=== PATIENT | female | born 1955 | race Caucasian/White ===

== ENCOUNTER 2018-11-15 18:30 | Emergency (ER) | payer SELFPAY ==
[~2018-11-15] VITALS: Ht 144.8 cm; Wt 82.0 kg
[2018-11-15 18:52] VITALS: BP 157/68; PULSE 102; RESP 22; Ht 144.8 cm; Wt 82.0 kg
== END 2018-11-15 22:55 | disposition left against medical advice (07) ==
LOC: E/R 18:30
DX: Z53.21 Procedure and treatment not carried out due to patient leaving prior to being seen by health care provider (principal)

== ENCOUNTER 2018-11-24 13:46 | Emergency (ER) | payer MEDICARE ==
[~2018-11-24] VITALS: Ht 157.5 cm; Wt 86.3 kg
[2018-11-24 13:52] VITALS: Ht 157.5 cm; Wt 86.3 kg
[2018-11-24] MEDS ORDERED: ALBUTEROL 0.083% (NEB) 2.5 MG/3 ML AMP INH STA (16:28)
[2018-11-24] MEDS ORDERED: IPRATROPIUM (NEB) 0.5 MG/2.5 ML AMP INH STA (16:28)
[2018-11-24] MEDS ORDERED: morphine 2 MG INJ IV STA (16:36)
[2018-11-24] MEDS ORDERED: ONDANSETRON 4 MG INJ IV STA (16:36)
--- NOTE | 2018-11-24 17:48 | ERD ---
ER Documentation Chief Complaint Chief Complaint Abdominal swelling since paracentesis 5 days ago, AP, Hx cirrhosis HPI This is a 63-year-old female with a past medical history of diabetes and hypertension however she states she has never been on medications and this is diet controlled. The patient does not have a primary care physician. The patient indicates for the past 5 days she has been experiencing abdominal swelling. She does complain of mild abdominal pain which she states is most prominent in the right flank region and right upper quadrant. There is no alleviating or exacerbating factors to the pain. She states the pain is 4 out of 10 in intensity. She is been having shortness of breath. She is been having swelling of her lower extremities. She indicates that she is experience any paroxysmal nocturnal dyspnea. She has to sleep with 4 pillows at night to improve her shortness of breath. The patient can only walk half a block before she becomes short of breath and tired. The patient was seen at [facility] at the onset of her symptoms 5 days prior to arrival. She was told that she has cirrhosis of the liver and indicated that they removed fluid from her belly. She indicates her symptoms have worsened which prompted her to come to the emergency department today. She denies any history of alcoholism and no illicit drug use. She has no headache. She has no changes in vision. She de nies any chest pain or pressure. She denies any recent travel or prolonged immobilization. She denies any fever shaking or chills. ROS All systems reviewed and are negative except as per history of present illness. Medications Home Meds No Active Prescriptions or Reported Meds Allergies Allergies: Coded Allergies: No Known Allergy (Unverified , 11/24/18) PMhx/Soc Medical and Surgical Hx: pt denies Surgical Hx Anesthesia Reaction: No Hx Neurological Disorder: No Hx Respiratory Disorders: No Hx Cardiac Disorders: Yes (hyperlipidemia, HTN all "diet controlled" not taking meds. ) Hx Psychiatric Problems: No Hx Miscellaneous Medical Probl: Yes (DM all "diet controlled" not taking meds.) Hx Alcohol Use: No Hx Substance Use: No Hx Tobacco Use: No Smoking Status: Never smoker Physical Exam Vitals Vital Signs Date Temp Pulse Resp B/P (MAP) Pulse Ox O2 O2 Flow FiO2 Time Delivery Rate 11/24/18 97.7 85 18 116/70 97 Room Air 20:42 (85) 11/24/18 97.7 92 18 110/64 97 Room Air 19:46 (79) 11/24/18 97.7 96 18 107/54 97 Room Air 19:05 (71) 11/24/18 80 19 97 21 17:09 11/24/18 97.7 95 18 121/57 98 13:52 (78) Physical Exam Constitutional:Well-developed. Well-nourished. Patient appeared in mild respiratory distress HEENT:Normocephalic. Atraumatic.Pupils were equal round reactive to light. Moist mucous membranes.No tonsillar exudates. Neck: No nuchal rigidity. No lymphadenopathy. No posterior cervical spine tenderness or step-offs. Respiratory: Tachypneic. Not using accessory muscles of respiration.Lungs were clear to auscultation bilaterally. No rhonchi. No rales. No wheezing. Cardiovascular: Regular rate regular rhythm.No murmurs. No rubs were appreciated.S1, S2 normal. Distal pulses are palpable 2+ bilaterally. GI: Abdomen was soft with distention and positive fluid thrill. Tenderness in the right flank region and mild tenderness the right upper quadrant with negative review sign. No pulsatile abdominal masses or bruits. No rebound. No guarding. Bowel sounds were present and normal. Muscle skeletal: Full range of motion of both the upper and lower extremities bilaterally.Normal muscle tone. Asymmetrical calf swelling however bilateral calf tenderness Skin: No petechia, no purpura. No lesions on the palms or the soles of the feet. No maculopapular rash. NEURO: Patient was alert, awake, orientated x3.No facial droop. Gait observed and normal with no ataxia.Speech had regular rate and rhythm. No focal neurological deficits. Result Diagram: 11/24/183 11/24/18 1653 Results 24 hrs Laboratory Tests Test 11/24/18 16:28 11/24/18 16:53 Blood Gas Specimen Source Blood arterial Arterial Blood Date Drawn 11/24/2018 7:30:03 PM Arterial Blood pH (Temp corrected) 7.403 Arterial Blood pCO2 (Temp correct) 31.9 mmhg Arterial Blood pO2 (Temp corrected) 72.7 mmHG Arterial Blood HCO3 19.5 mmol/L Arterial Blood Base Excess -4.5 mmol/L Arterial Blood Oxygen Saturation 92.9 mmHG [place] Test ACCEPTAB Arterial Blood Gas Puncture Site Right Radial Arterial Blood Carboxyhemoglobin 0.3 % Arterial Blood Methemoglobin 0.2 % Blood Gas A-a O2 Differential 38.8 mmHg Oxyhemoglobin Percent 92.4 % Blood Gas Temperature 37.0 C Blood Gas Actual Respiration Rate 18 Blood Gas Modality ROOM AIR FiO2 21.0 % Blood Gas Notified Whom Blood Gas Notified Time 11/24/2018 7:35:46 PM White Blood Count 5.6 10^3/ul Red Blood Count 4.28 10^6/ul Hemoglobin 10.2 g/dl Hematocrit 33.8 % Mean Corpuscular Volume 79.0 fl Mean Corpuscular Hemoglobin 23.8 pg Mean Corpuscular Hemoglobin Concent 30.2 g/dl Red Cell Distribution Width 23.0 % Platelet Count 142 10^3/UL Mean Platelet Volume 9.0 fl Immature Granulocytes % 0.000 % Neutrophils % 63.3 % Lymphocytes % 18.4 % Monocytes % 9.8 % Eosinophils % 8.0 % Basophils % 0.5 % Nucleated Red Blood Cells % 0.0 /100WBC Immature Granulocytes # 0.000 10^3/ul Neutrophils # 3.6 10^3/ul Lymphocytes # 1.0 10^3/ul Monocytes # 0.6 10^3/ul Eosinophils # 0.5 10^3/ul Basophils # 0.0 10^3/ul Nucleated Red Blood Cells # 0.0 10^3/ul Prothrombin Time 17.4 Sec Prothrombin Time Ratio 1.4 INR International Normalized Ratio 1.41 Activated Partial Thromboplast Time 32.4 Sec Sodium Level 135 mmol/L Potassium Level 4.8 mmol/L Chloride Level 102 mmol/L Carbon Dioxide Level 22 mmol/L Anion Gap 11 Blood Urea Nitrogen 29 mg/dl Creatinine 1.96 mg/dl Est Glomerular Filtrat Rate mL/min 26 mL/min Glucose Level 151 mg/dl Calcium Level 8.8 mg/dl Total Bilirubin 0.6 mg/dl Direct Bilirubin 0.00 mg/dl Indirect Bilirubin 0.6 mg/dl Aspartate Amino Transf (AST/SGOT) 65 IU/L Alanine Aminotransferase (ALT/SGPT) 30 IU/L Alkaline Phosphatase 232 IU/L Creatine Kinase 317 IU/L Creatine Kinase Index 0.7 Creatinine Kinase MB (Mass) 2.32 ng/ml Troponin I < 0.012 ng/ml B-Type Natriuretic Peptide 111 PG/ML Total Protein 7.3 g/dl Albumin 3.0 g/dl Globulin 4.30 g/dl Albumin/Globulin Ratio 0.69 Hepatitis B Surface Antigen NEGATIVE Hepatitis B Core Total Antibody NEGATIVE Hepatitis C Antibody NEGATIVE Current Medications Medications Dose Sig/Imani Start Time Status Last (Trade) Ordered Route PRN Stop Time Admin Dose Reason Admin Albuterol 5 mg ONCE STAT 11/24/18 DC 11/24/18 (Proventil INH 16:28 11/24/18 17:08 0.083% (Neb)) 16:30 Ipratropium 0.5 mg ONCE STAT 11/24/18 DC 11/24/18 [place] [facility] 16:28 11/24/18 17:08 (Atrovent 16:30 0.02% (Neb)) Morphine 2 mg ONCE STAT 11/24/18 DC 11/24/18 Sulfate IV 16:36 11/24/18 17:15 (morphine) 16:40 Ondansetron 4 mg ONCE STAT 11/24/18 DC 11/24/18 HCl (Zofran IV 16:36 11/24/18 17:15 Inj) 16:40 Lidocaine 5 ml STK-MED 11/24/18 DC (Xylocaine ONCE .ROUTE 18:59 11/24/18 1% (Mpf)) 19:00 Procedures/MDM The patient presented to the emergency department with shortness of breath. My differential diagnosis included but was not limited to upper airway obstruction, CHF, pulmonary embolism, cardiac ischemia, pneumonia, pneumothorax, anemia, drug overdose, pulmonary edema, COPD or asthma. I obtained a 12-lead EKG tracing to rule out for atypical myocardial infarction. 12 Lead EKG tracing ordered and reviewed by myself showed: Normal sinus rhythm of 89 bpm and no arrhythmia. FL interval normal. QRS duration widened at 126 ms with right bundle branch block No ST segment elevation. Left axis deviation. No ST segment depression. No changes consistent with acute ischemia. I obtained a 1 view chest radiograph that was reviewed by myself and indicated cardiomegaly with an elevated right hemidiaphragm. I obtained venous duplex ultrasound lower extremities due to the bilateral calf tenderness there is no evidence of a deep vein thrombosis. An ultrasound-guided paracentesis have been performed. The patient has received paracentesis in the past. There is no evidence of spontaneous bacterial peritonitis. This was performed by the radiologist and 5 L have been removed. The patient tolerated the procedure well. I obtained a CT scan of the patient's abdomen given that she had very poor outpatient follow-up. This was reviewed by myself the radiologist given that the patient had right flank pain. It indicated the followin. Liver configuration is consistent with severe hepatic cirrhosis. No focal liver lesions are demonstrated. 2. Moderate ascites in the abdomen and pelvis, secondary to portal hypertension. 3. 1.5 cm right renal cyst. 1.6 cm left renal cyst. No nephrolithiasis, hydronephrosis, or obstructive uropathy. 4. Mild nonspecific subcutaneous edema throughout the abdomen and pelvis. Small umbilical hernia containing fat and ascites. 5. Calcified gallstones in the gallbladder. No biliary dilatation. 6. Gastroesophageal varices are noted. The patient's daughter was at bedside. I had a lengthy discussion with both the patient and her daughter regarding the seriousness of her condition. They were seen by registration and were able to arrange for insurance and follow-up with an outpatient PCP. I provided copies of all of the patient's lab work and CT scans. There is no evidence of hepatitis. The patient had no evidence of sepsis. No evidence of hepatic encephalopathy and I did feel like she could be safely discharged. Observation Note: Time: 7 hours Family Hx: No Hypertension Evaluation: Multiple exams showed improving symptoms and no evidence of dyspnea or respiratory distress at this time. Departure Diagnosis: Primary Impression: Ascites Ascites type: other type Qualified Codes: R18.8 - Other ascites Additional Impression: Renal failure Renal failure chronicity: acute Acute renal failure type: unspecified Qualified Codes: N17.9 - Acute kidney failure, unspecified Condition: RICH Pizano MD Nov 24, 2018 17:47
[2018-11-24] MEDS ORDERED: LIDOCAINE 1% (MPF) 5 ML VIAL ONE (18:59)
[2018-11-24 21:37] VITALS: BP 113/55; PULSE 80; RESP 18
== END 2018-11-24 22:22 | disposition home or self-care (01) ==
LOC: E/R 13:46
DX: R18.8 Other ascites (principal); I10 Essential (primary) hypertension; E11.9 Type 2 diabetes mellitus without complications; N17.9 Acute kidney failure, unspecified; R06.02 Shortness of breath
CPT/HCPCS: 36600; 71045; 74176; 80053; 82550; 82553; 82803; 83880; 84484; 85025; 85610; 85730; 86704; 86709; 86803; 87340; 93970; 94664; 96374; 96375; 99285; J2270; J2405

== ENCOUNTER 2018-12-09 07:55 | Emergency (ER) | payer MEDICARE, MEDICAID ==
[~2018-12-09] VITALS: Ht 152.4 cm; Wt 88.9 kg
[2018-12-09 07:57] VITALS: Ht 152.4 cm; Wt 88.9 kg
--- NOTE | 2018-12-09 08:13 | ERD ---
ER Documentation Chief Complaint Chief Complaint PARACENTISIS; LAST ONE WAS DONE ABOUT 2 WEEKS AGO PER PT HPI This is a 63-year-old female with a past medical history of hypertension diabet es mellitus. The patient also has a history of liver cirrhosis and ascites. Her last paracentesis was November 24, 2018 2 weeks prior to arrival when she been seen and evaluated by myself. At that time the patient had been complaining of right flank pain and had a significant workup with venous duplex ultrasounds of lower extremities and a CT scan of the abdomen. She also had an ultrasound- guided paracentesis with removal of 5 L of fluid at that time. She indicates that today she is not experiencing any abdominal pain but has had worsening of her abdominal distention with mild dyspnea. She denies any fever shaking or chills. She denies hemoptysis hematemesis or melanotic stools. ROS All systems reviewed and are negative except as per history of present illness. Medications Home Meds No Active Prescriptions or Reported Meds Allergies Allergies: Coded Allergies: No Known Allergy (Unverified , 11/24/18) PMhx/Soc Anesthesia Reaction: No Hx Neurological Disorder: No Hx Respiratory Disorders: No Hx Cardiac Disorders: Yes (hyperlipidemia, HTN all "diet controlled" not taking meds. ) Hx Psychiatric Problems: No Hx Miscellaneous Medical Probl: Yes (DM all "diet controlled" not taking meds.) Hx Alcohol Use: No Hx Substance Use: No Hx Tobacco Use: No Physical Exam Vitals Vital Signs Date Temp Pulse Resp B/P (MAP) Pulse Ox O2 O2 Flow FiO2 Time Delivery Rate 12/09/18 99.6 116 22 157/70 96 07:57 (99) Physical Exam Constitutional:Well-developed. Well-nourished. HEENT:Normocephalic. Atraumatic.Pupils were equal round reactive to light. Moist mucous membranes.No tonsillar exudates. Neck: No nuchal rigidity. No lymphadenopathy. No posterior cervical spine tenderness or step-offs. Respiratory: Not using accessory muscles of respiration.Lungs were clear to auscultation bilaterally. No rhonchi. No rales. No wheezing. Cardiovascular: Regular rate regular rhythm.No murmurs. No rubs were appreciated.S1, S2 normal. Distal pulses are palpable 2+ bilaterally. GI: Abdomen was soft. Nontender. Abdominal distention with tense ascites and positive fluid thrill. No pulsatile abdominal masses or bruits. No rebound. No guarding. Bowel sounds were present and normal. Muscle skeletal: Full range of motion of both the upper and lower extremities bilaterally.Normal muscle tone.No assymetrical calf tenderness or swelling. Skin: No petechia, no purpura. No lesions on the palms or the soles of the feet. No maculopapular rash. NEURO: Patient was alert, awake, orientated x3.No facial droop. Gait observed and normal with no ataxia.Speech had regular rate and rhythm. No focal neurological deficits. Procedures/MDM This is a 63-year-old female who presented to the emergency department with ascites. My clinical suspicion was low for spontaneous bacterial peritonitis. The patient had ancillary laboratory work obtained with no severe electrolyte abnormalities. The patient had an ultrasound-guided paracentesis performed by the radiologist. She had removal of 5 L of fluid. She tolerated the procedure well. I do feel she be safely discharged home. The patient was discharged home in fair condition. They were instructed to return to the emergency department at any time if there was any worsening of their condition. The patient stated they would follow up with their PCP in the next 24-48 hours to initiate a suitable medication regimen under the care of their PCP as well as to allow their PCP to monitor any drug reactions. The patient was discharged home with prescriptions after they gave informed consent to the new medication. They were also fully i nformed by myself on the adverse effects and adverse drug interactions in order to provide adequate safeguards to prevent possible adverse reactions to medications. Departure Diagnosis: Primary Impression: Ascites Ascites type: other type Qualified Codes: R18.8 - Other ascites Condition: Fair RICH PETERSON MD Dec 09, 2018 08:13
[2018-12-09] MEDS ORDERED: LIDOCAINE 1% (MPF) 5 ML VIAL ONE (09:38)
[2018-12-09 10:40] VITALS: BP 101/51; PULSE 99; RESP 24
== END 2018-12-09 10:40 | disposition home or self-care (01) ==
LOC: E/R 07:55
DX: R18.8 Other ascites (principal); I10 Essential (primary) hypertension; E11.9 Type 2 diabetes mellitus without complications
CPT/HCPCS: 80053; 85025; 85610; 85730